=== PATIENT | male | born 1955 | race Caucasian/White ===

== ENCOUNTER 2024-03-09 13:32 | Emergency (ER) | payer MEDICARE, MEDICAID, SELFPAY ==
[2024-03-09 13:35] VITALS: BP 162/107; PULSE 99; RESP 19; TEMP 36.9; O2SAT 99
--- NOTE | 2024-03-09 13:36 | PD.EDADULT ---
ED General RME/HPI General Chief complaint: Medical Clearance Stated complaint: MEDICAL CLEARANCE Time Seen by Provider: 03/09/24 13:36 Arrival date/time: 03/09/24 13:32 RME / HPI RME / HPI narrative: 69-year-old male with a history of hypertension, COPD, pacemaker, who is in custody with requirement of medical clearance for his pacemaker. Patient has no complaints. He has no chest pain, he has no palpitations Related Data Home Medications ?Medication ?Instructions ?Recorded ?Confirmed acetaminophen 500 mg tablet 500 mg PO Q6H PRN Mild pain or 07/07/21 07/24/21 fever aspirin 81 mg tablet,delayed 81 mg PO QDAY 07/07/21 07/24/21 release atenolol 25 mg tablet 25 mg PO QDAY 07/07/21 07/24/21 atorvastatin 80 mg tablet 80 mg PO QPM 07/07/21 07/24/21 hydroxyzine pamoate 50 mg capsule 50 mg PO TID 07/07/21 07/24/21 levothyroxine 25 mcg tablet 25 mcg PO QAM 07/07/21 07/24/21 loperamide 2 mg tablet 2 mg PO QDAY PRN Diarrhea 07/07/21 07/24/21 paroxetine HCl 20 mg tablet 40 mg PO HS 07/07/21 07/24/21 risperidone 2 mg tablet 2 mg PO HS 07/07/21 07/24/21 trazodone 100 mg tablet 250 mg PO HS 07/07/21 07/24/21 trihexyphenidyl 2 mg tablet 2 mg PO HS 07/07/21 07/24/21 Previous Rx's ?Medication ?Instructions ?Recorded albuterol sulfate 90 mcg/actuation 1 inh inhalation QID PRN shortness 07/09/21 aerosol inhaler of breath or wheezing #6.7 grams beclomethasone dipropionate 80 1 inh inhalation BID #10.6 grams 07/09/21 mcg/actuation HFA breath activated aerosol (Qvar RediHaler) Allergies Allergy/AdvReac Type Severity Reaction Status Date / Time No Known Allergies Allergy Verified 08/25/23 22:29 Review of Systems Review of Systems Systems Reviewed: All systems reviewed, normal except as documented ED Exam Narrative Physical exam: GENERAL APPEARANCE: AxOx4, generally well-appearing, no acute distress. HEART: Normal rate and regular rhythm, normal S1/S1, no m/r/g LUNGS: CTAB, moving air well. No crackles or wheezes are heard. ABDOMEN: Soft, nontender, nondistended with good bowel sounds heard. MUSCULOSKELETAL: FROM of all major joints, no chest tenderness, palpable pacemaker left upper chest NEUROLOGICAL: Grossly nonfocal. Alert and oriented, moving all 4 extremities. CN not formally tested but appear grossly intact. Observed to ambulate with normal gait. Skin: Warm and dry without any rash. Course Quality Measures none Vital Signs Vital signs: Vital Signs Temperature 98.4 F 03/09/24 13:35 Pulse Rate 99 03/09/24 13:35 Respiratory Rate 19 03/09/24 13:35 Blood Pressure 162/107 H 03/09/24 13:35 Pulse Oximetry (%) 99 03/09/24 13:35 Oxygen Delivery Method Room Air 03/09/24 13:35 [facility] Patient data External records reviewed:: [facility] previous records Clinical information provided by:: patient and law enforcement Social determinants that could affect healthcare access:: none Patient has the following chronic illnesses:: Hypertension, dyslipidemia, COPD How is presenting disease/condition affected by chronic disease/condition?: uneffected by Evaluation data The following diagnostics were reviewed and interpreted by me:: other (specify) (Workup not indicated) Lab and/or radiology exams considered but not ordered:: None Interpretation Summary: Not applicable Medications Medications considered but not ordered:: None Medication administrations:: None Consultations Consultation(s) initiated? (list below): No Diagnosis Differential Diagnosis ED Complaint MDM: Medical clearance Most likely diagnosis given after review of the tests above:: See below Admission Indicated Admission indicated?: not indicated Explain why admission is indicated or not indicated:: Patient has no complaints, stable vital signs Admission Request Was there a request for admission?: No Disposition Plan Disposition Plan: Discharge Discharge Attestation Discharge Attestation: The patient and all family members were given an opportunity to ask questions and understood the discharge instructions. Discharge instructions specifically effects, indications for sooner follow up or return to the emergency department, and the expected course of current diagnosis. Patient condition: Stable Medical Decision Making MDM Narrative MDM Narrative: Mr. Rosaura mendez on forward with medical staff for clearance because he has a pacemaker . Patient has no complaints. I am not certain what kind of the pacemaker he has or a dual pacemaker is at the [place] beyond the time honestly does not really matter at this point. He is not of the role of the emergency department to interrogate and qualify his pacemaker in the light that he has no complaints. Differential Diagnosis Differential Diagnosis: Medical clearance Discharge Plan Plan Patient Disposition: Intermediate/Court/Law Prescriptions/Referrals Prescriptions/Med Rec: No Action atorvastatin 80 mg Tablet 80 mg PO QPM Rx Instructions: EVERY EVENING. loperamide 2 mg Tablet 2 mg PO QDAY PRN (Reason: Diarrhea) atenolol 25 mg Tablet 25 mg PO QDAY hydroxyzine pamoate 50 mg Capsule 50 mg PO TID aspirin 81 mg Tablet,Delayed Release (Dr/Ec) 81 mg PO QDAY acetaminophen 500 mg Tablet 500 mg PO Q6H PRN (Reason: Mild pain or fever) levothyroxine 25 mcg Tablet 25 mcg PO QAM Rx Instructions: TAKE ON EMPTY STOMACH risperidone 2 mg Tablet 2 mg PO HS trazodone 100 mg Tablet 250 mg PO HS paroxetine HCl 20 mg Tablet 40 mg PO HS trihexyphenidyl 2 mg Tablet 2 mg PO HS albuterol sulfate 90 mcg/actuation HFA aerosol inhaler 1 inh inhalation QID PRN (Reason: shortness of breath or wheezing) Qty: 6.7 0RF Qvar RediHaler 80 mcg/actuation HFA aerosol breath activated 1 inh inhalation BID Qty: 10.6 0RF Rx Instructions: administer with spacer Problem List Clinical Impression: Medical clearance for incarceration, Elevated blood pressure reading Patient/Caregiver Discharge Instructions Education Materials: ED Hypertension, Established, ED High Blood Pressure ... Additional Instructions: Follow-up with your primary care doctor as needed. You can return to the emergency department sooner symptoms worsen or if notes any new, concerning issues. Print Language: Malian
[2024-03-09 13:37] VITALS: BMI 21.0
[2024-03-09 14:50] VITALS: BP 159/93; PULSE 68; RESP 18; TEMP 36.6; O2SAT 95
== END 2024-03-09 14:57 ==
PROVIDERS: Emergency Provider Emergency Medicine; PCP Family Medicine
DX: Z02.89 Encounter for other administrative examinations (principal); I10 Essential (primary) hypertension; Z95.0 Presence of cardiac pacemaker
CPT/HCPCS: 99281